=== PATIENT | male | born 1970 | race Caucasian/White ===

== ENCOUNTER 2020-08-03 15:59 | Outpatient (RCR) | payer OTHER ==
[2020-06-08 16:47] VITALS: BP 157/88
[2020-06-08 17:45] VITALS: BP 138/90
[~2020-08-03] VITALS: Ht 198.1 cm; Wt 113.6 kg
[2020-08-03 16:05] VITALS: BP 150/84
== END 2020-09-06 | disposition home or self-care (01) ==
LOC: AMSURD
DX: K51.00 Ulcerative (chronic) pancolitis without complications (principal)
CPT/HCPCS: J3380; J7050

== ENCOUNTER → 2020-08-03 | Outpatient (CLI) | payer OTHER ==
[~2020-08-03] MED LIST: AMITRIPTYLINE H50 M1 PO; AMLODIPINE BESYL5 MG PO; ATORVASTATIN CA10 MG PO; ENTYVIO300 MG; GLUCOTROL 5M5 MG/TAB PO; IRON90 MG; JANUVIA 100MG100 MG; PRILOSEC 20MG20 MG PO; PURINETHOL 50MG50 MG PO; VITAMIN D310 MC4
[2020-08-03 16:05] VITALS: BP 150/84
[2020-08-03 16:28] LABS: HEMATOCRIT 42.8 % (42.0-52.0); HEMOGLOBIN 15.4 g/dL (13.5-18.0); RED BLOOD COUNT 5.19 M/mm3 (4.20-5.60); RED CELL DISTRIBUTION WIDTH 13.8 % (11.5-14.5)
[2020-08-03 16:39] LABS: ALBUMIN 4.3 g/dL (3.5-5.0)
[2020-08-03 16:41] LABS: CALCIUM 8.8 mg/dL (8.3-10.5)
[2020-08-03 16:42] LABS: TOTAL PROTEIN 6.7 g/dL (6.4-8.3)
== END ==
LOC: LAB 16:27
PROVIDERS: Nurse Practitioner Family
DX: K51.00 Ulcerative (chronic) pancolitis without complications (principal); I10 Essential (primary) hypertension; E11.9 Type 2 diabetes mellitus without complications; E78.5 Hyperlipidemia, unspecified

== ENCOUNTER 2020-11-29 15:09 | Outpatient (RCR) | payer OTHER ==
[2020-10-04 16:12] VITALS: BP 149/107
[2020-10-04 17:08] VITALS: BP 150/93
[~2020-11-29 15:09] MED LIST changes: +GLIPIZIDE ER5 MG PO; +GLUCOPHAGE PO; -GLUCOTROL 5M5 MG/TAB PO; +HYOSCYAMINE0.125 M7 PO; -VITAMIN D310 MC4; +VITAMIN D325 MC4 PO
[2020-11-29 15:25] VITALS: BP 126/82
[2020-11-29 16:17] VITALS: BP 144/88
== END 2021-01-02 | disposition still patient (30) ==
LOC: AMSURD
DX: K51.00 Ulcerative (chronic) pancolitis without complications (principal); Z79.899 Other long term (current) drug therapy
CPT/HCPCS: J3380; J7050

== ENCOUNTER → 2020-12-19 | Outpatient (CLI) | payer OTHER ==
[2020-11-29 16:17] VITALS: BP 144/88
[2020-12-19 10:23] LABS: BASO # 0.04 (0.02-0.10); EOS # 0.28 (0.04-0.40); EOS % 3.9 % (0.0-4.0); HEMATOCRIT 46.1 % (42.0-52.0); HEMOGLOBIN 16.6 g/dL (13.5-18.0); MEAN CELL VOLUME 83 fl (78-100); MEAN CORPUSCULAR HEMOGLOBIN 30 pg (27-31); MEAN CORPUSCULAR HGB CONC 36 g/dL (33-37); MEAN PLATELET VOLUME 9.6 fl (7.4-10.4); MONO # 0.39 (0.20-0.80); NEU # 4.46 (1.40-6.50); PLATELET COUNT 293 K/mm3 (130-400); RED BLOOD COUNT 5.57 M/mm3 (4.20-5.60); WHITE BLOOD COUNT 7.1 K/mm3 (4.8-10.8)
[2020-12-19 10:32] LABS: ALBUMIN 4.1 g/dL (3.5-5.0); POTASSIUM 4.4 mmol/L (3.5-5.1)
[2020-12-19 10:33] LABS: CALCIUM 9.1 mg/dL (8.3-10.5)
[2020-12-19 10:35] LABS: TOTAL PROTEIN 6.7 g/dL (6.4-8.3)
[2020-12-19 10:36] LABS: TOTAL BILIRUBIN 0.9 mg/dL (0.2-1.2)
[2020-12-19 10:42] LABS: URINE APPEARANCE CLEAR; URINE BILIRUBIN NEGATIVE (NEGATIVE); URINE BLOOD NEGATIVE (NEGATIVE); URINE COLOR YELLOW; URINE KETONE NEGATIVE (NEGATIVE); URINE LEUKOCYTE ESTERASE NEGATIVE (NEGATIVE); URINE NITRATE NEGATIVE (NEGATIVE); URINE PROTEIN(semi-quant) NEGATIVE (NEGATIVE); URINE UROBILINOGEN NORMAL (NORMAL); URINE WBC 0-1 /hpf (0-3)
== END ==
LOC: LAB 10:06
PROVIDERS: Nurse Practitioner Primary Care
DX: E78.5 Hyperlipidemia, unspecified (principal)

== ENCOUNTER 2021-03-21 15:54 | Outpatient (RCR) | payer OTHER ==
[2021-01-24 16:30] VITALS: BP 156/97
[2021-01-24 17:20] VITALS: BP 139/93
[~2021-03-21] VITALS: Ht 198.1 cm; Wt 109.1 kg
[2021-03-21 16:21] VITALS: BP 144/80
== END 2021-04-24 | disposition home or self-care (01) ==
LOC: AMSURD
DX: K51.00 Ulcerative (chronic) pancolitis without complications (principal); Z79.899 Other long term (current) drug therapy
CPT/HCPCS: J3380; J7050

== ENCOUNTER → 2021-11-16 | Outpatient (CLI) | payer BC | LOC: RAD 13:32 | DX: S90.415A Abrasion, left lesser toe(s), initial encounter (principal) ==